=== PATIENT | male | born 1970 | race Caucasian/White ===

== ENCOUNTER 2023-12-31 16:20 | Emergency (ER) | payer OTHER, SELFPAY ==
[2023-12-31 16:23] VITALS: BP 170/84; PULSE 66; RESP 16; TEMP 36.6; O2SAT 97
--- NOTE | 2023-12-31 16:25 | CT_ITS ---
We are attempting to reach an attending provider to discuss findings. An addendum with communication details will be sent when the communication is complete. INDICATION: Neuro deficit, acute, stroke suspected EXAMINATION: CT BRAIN - CT Head Stroke Protocol W/O Contrast Injection TECHNIQUE: Multiple axial images were obtained of the head without intravenous contrast. A radiation dose optimization technique was used for this scan. IV Contrast dosage and agent: None. RADIATION DOSAGE (If Supplied By Facility): CTDIvol = ( ) mGy, DLP = ( 812.98 ) mGycm COMPARISON: FINDINGS: BRAIN PARENCHYMA: No intra- or extra-axial hemorrhage. No evidence of acute infarct. No intracranial mass or mass effect. There is preservation of the arnold/white matter interface. Posterior fossa structures are unremarkable. CSF SPACES: Mild cortical atrophy for stated age No hydrocephalus. Basal cisterns are patent. CALVARIUM, SKULL BASE, PARANASAL SINUSES AND MASTOID AIR CELLS: Moderate mucosal thickening in the right ethmoid air cells.. No discrete lytic or blastic abnormalities. ORBITS: Both globes, extraocular muscles, optic nerves and retrobulbar fat appear unremarkable. Incidental finding of asymmetric increased attenuation of the right internal carotid and M1 segment of the middle cerebral of uncertain significance although cannot definitively exclude arterial thrombosis. MRI recommended for more definitive evaluation if clinically indicated. CT/STROKE Brain/Head without Cont IMPRESSION: No definitive evidence for acute infarct or bleed however findings suspicious for possible thrombosis of the right middle cerebral artery. MRI /MRArecommended for further evaluation if clinically warranted. Electronically Signed: Albaro Melissa MD at 16:45 EST ,
--- NOTE | 2023-12-31 16:25 | EKG12_ITS ---
Test Reason : POSS STROKE Blood Pressure : / mmHG Vent. Rate : 062 BPM Atrial Rate : 062 BPM P-R Int : 164 ms QRS Dur : 078 ms QT Int : 438 ms P-R-T Axes : -08 056 029 degrees QTc Int : 444 ms Normal sinus rhythm Normal ECG When compared with ECG of 12-SEP-2012 16:14, Vent. rate has decreased BY 31 BPM Confirmed by CARINA LLANES MD ([id number]), scientific publications editor GREGORIO OCONNOR ([id number]) on 01/09/2024 9:18:20 AM Referred By: JAKOB Confirmed By:CARINA LLANES MD
--- NOTE | 2023-12-31 16:26 | ED.VIS.STROK ---
HPI History of Present Illness Chief Complaint: Stroke Alert Informant: patient and EMS Onset/Context/Timing Onset: Today and Hours Context: Sudden Onset Timing: Continuous Current Severity: Severe Maximum Severity: Severe Associated Symptoms Associated Symptoms: Positive for Headache; Negative for Nausea, Vomiting or Chest Pain Narrative Narrative: 53-year-old male history of hypertension and anxiety. Today around 8 AM he developed a left-sided weakness, left-sided facial droop and a headache. Also some difficulty with his speech. He was at work he laid down to see if he would feel better and is progressively not improved and is again a little worse. No prior history of stroke or TIA. He is on no blood thinners. Denies any trauma. Patient brought in by [facility]. Stroke alert and team assembled. Prior similar symptoms: No Recent Illness/Hospitalization: No [facility] Medical History (Updated 12/31/23 @ 17:[address] Jerardo Luther MD) AA (alcohol abuse) Anxiety HTN (hypertension) Home Medications alprazolam 0.5 mg tablet 0.5 mg PO BID 12/31/23 [History Last Taken Unknown] Social History Smoking Status: Current every day smoker tobacco type: cigarettes ROS ROS ED ROS Narrative Headache. Left-sided weakness. Review of Systems ROS Unobtainable: Denies due to encephalopathy Constitutional Constitutional ED: Denies chills or fever(s) Eyes Eyes: Denies blurry vision ENT ENT ED: Denies ear pain Cardiovascular Cardiovascular: Denies chest pain Respiratory/Chest Respiratory/Chest: Denies cough or dyspnea Gastrointestinal Gastrointestinal: Denies abdominal pain, constipation, diarrhea, melena, nausea or vomiting Genitourinary Genitourinary ED: Denies dysuria or hematuria Musculoskeletal Musculoskeletal: Denies arthralgias Integumentary Denies abscess Neurologic Neurologic: Reports headache(s) and weakness; Denies paresthesias Psychiatric Psychiatric: Denies depression Endocrine Endocrinology: Denies polydipsia Hematologic/Lymphatic Hematologic/Lymphatic: Denies easy bleeding or easy bruising Allergic/Immunologic Allergic/Immunologic ED: Denies mouth swelling or urticaria EXAM Physical Exam Narrative Exam Narrative: 53-year-old male brought in by squad. Vital signs pending. H EENT exam pupils round react to light his motions are intact. Left facial droop. Neck nontender. Lungs clear. Heart regular rhythm no murmur. Chest wall and ribs nontender. Abdomen soft nontender. Neurologically is awake. He is left facial droop. Slurred speech is mildly slurred. He has significant weakness with his left hand, arm and leg. He cannot lift them off the bed. 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 He is awake alert. However and is answering questions. Const Vital Signs: 12/31/23 16:23 12/31/23 16:30 12/31/23 16:30 Temperature 98 F 98 F Temperature Source Temporal Temporal Pulse Rate 66 66 Respiratory Rate 16 19 H Blood Pressure 170/84 H 195/93 H Blood Pressure Mean 112 127 Pulse Ox 97 100 Oxygen Delivery Method Room Air Room Air 12/31/23 16:42 12/31/23 16:45 12/31/23 17:00 Temperature Temperature Source Pulse Rate 65 67 Respiratory Rate 15 20 H Blood Pressure 170/100 H 165/102 H Blood Pressure Mean 123 123 Pulse Ox 99 100 Oxygen Delivery Method Room Air Room Air Room Air 12/31/23 17:15 12/31/23 17:24 Temperature 98 F Temperature Source Pulse Rate 62 69 Respiratory Rate 18 18 Blood Pressure 168/83 H 168/83 H Blood Pressure Mean 111 111 Pulse Ox 100 99 Oxygen Delivery Method Room Air Positive well nourished and well developed; Negative for obese, cachectic, contractures or unkempt General Appearance ED: well developed; Negative for unkempt, cachectic, contractures or NAD Nutritional Appearance: Negative for cachectic or obese HEENT Reports moist mucous membranes; Denies dry mucous membranes atraumatic; Negative for trauma Nose: Negative for other Mouth ED: No dry mucous membranes Mouth: No dry mucous membranes Eyes PERRL and EOMs intact bilaterally General Eye ED: Negative for pale conjunctiva or scleral icterus Neck no lymphadenopathy, supple and no JVD General: Negative for tenderness Thyroid: Negative for other Chest Wall inspection of chest normal and palpation of chest normal Resp normal respiratory effort and clear to auscultation bilaterally Effort and Inspection: Negative for retractions Auscultation: Negative for rales, rhonchi or wheezes Cardio no murmurs Rate: regular rate Rhythm: regular rhythm GI normal to inspection, nondistended, normoactive bowel sounds, soft to palpation, non-tender, non-distended and no masses Inspection: Negative for abdominal distention Auscultation: normoactive bowel sounds Palpation: Negative for tender Back/Spine no CVA tenderness General Back: Negative for CVA tenderness Cervical Spine: Negative for cervical spine tenderness Thoracic Spine / Upper Back: Negative for thoracic spinal tenderness Lumbar Spine / Lower Back: Negative for lumbar spinal tenderness Extremity Negative for normal to inspection Extremity Narrative: Left-sided weakness. General Extremety ED: Negative for deformity, edema or tenderness General Extremity: Negative for deformity or edema Neuro oriented x3, No CN's II-XII intact bilaterally and no sensory deficits noted Neuro Narrative: Left facial droop. Slurred speech. But understandable. Significant weakness left arm and leg. Sensorium / Orientation: alert, oriented to person, oriented to place and oriented to time; Negative for orientation impaired, confused, lethargic or stuporous Speech: Negative for speech normal Motor Exam: strength abnormal; Negative for strength 5/5 throughout Psych mental status grossly normal Appearance: Negative for unkempt Attitude: No agitated Mood & Affect: Negative for depressed, anxious or tearful Attention / Concentration: Negative for other Skin no wounds General Skin Exam: Negative for jaundice Lesions: no lesions Rashes: no rashes Trauma: Negative for abrasion or laceration NIHSS NIHSS Initial: 1a Level of Consciousness: 0 1b LOC Questions (Score 2 if aphasic/stupor): 0 1c LOC Commands (Only score 1st attempt): 0 2 Best Gaze (If aphasic, use reflexive mvmts.): 0 3 Visual: 0 4 Facial Palsy: 2 5 Motor Arm Right (UN = amputation/fusion): 0 5 Motor Arm Left: 3 6 Motor Leg Right: 0 6 Motor Leg Left: 3 7 Limb ataxia (Only + if out of proportion): 2 8 Sensory (Aphasia/stupor=0 or 1, coma=2): 0 9 Best Language: 1 10 Dysarthria (mute, coma=2, intubated=UN): 0 11 Extinction and Inattention (only scored if +): 0 Total Score: 11 MDM MDM MDM Narrative Medical decision making narrative: 33-year-old male presents with strokelike symptoms of these began around 8 AM and is currently 430. It is about 8 and half hours since onset. He is on no blood thinners. To be put through the stroke protocol. I state is on page. Patient's CAT scan and CT a head and neck did show right-sided internal carotid and MCA occlusion with stroke findings on the brain. No bleed. I have already discussed this with radiology and [facility] neurology. Will be taken to [facility] as soon as possible by ground transport. Due to the weather they are currently not flying. Will be taken by mobile intensive care unit. He is not a tenecteplase candidate due to the timeline. And also his CT findings. He may be a candidate for thrombectomy once he gets [facility] and do further evaluation. I discussed this all already with the patient and his at bedside. History & Record Review Discussion w/independent historian: EMS personnel and Patient Lab Data Attestation: I reviewed the patient's lab results. Lab results narrative: CBC shows a white count 8.9. H&H is 17 and 52. Platelets 211. PT, INR and PTT normal. Electrolytes show sodium 135. Gap 2. Normal BUN and creatinine. Glucose 107. Troponin 3. CTA of the head and neck showed a right internal carotid clot extending into the right middle cerebral artery. The radiologist called with the results. I reviewed these with the [facility] neurologist. Labs: Laboratory Results - last 24 hr 12/31/23 16:15 WBC 8.9 RBC 5.35 Hgb 17.7 H Hct 52.4 MCV 97.9 H MCH 33.1 H MCHC 33.8 RDW Std Deviation 47.8 H RDW Coeff of Cuate 13.2 Plt Count 211 MPV 10.4 Immature Gran % (Auto) 0.300 Neut % (Auto) 72.4 H Lymph % (Auto) 16.8 L [place] % (Auto) 8.7 Eos % (Auto) 1.0 Baso % (Auto) 0.8 Absolute Neuts (auto) 6.5 Absolute Lymphs (auto) 1.50 Nucleated RBC % 0 PT 11.8 INR 0.9 APTT 30.4 Sodium 135 L Potassium 3.9 Chloride 108 H Carbon Dioxide 25.0 Anion Gap 2 L BUN 13 Creatinine 0.96 Estim Creat Clear Calc 86.94 Est GFR (MDRD) Af Amer 105 Est GFR (MDRD) Non-Af 87 BUN/Creatinine Ratio 13.6 Glucose 107 H Calcium 9.5 Troponin I High Sens 3 Radiography Diagnostic Testing: Clinical Impression(s) from Imaging Studies Brain CT 12/31/23 16:25 IMPRESSION: No definitive evidence for acute infarct or bleed however findings suspicious for possible thrombosis of the right middle cerebral artery. MRI /MRArecommended for further evaluation if clinically warranted. Electronically Signed: Albaro Melissa MD at 16:45 EST , ADDENDUM: 12/31/23 1657 IMPRESSION: No definitive evidence for acute infarct or bleed however findings suspicious for possible thrombosis of the right middle cerebral artery. MRI /MRArecommended for further evaluation if clinically warranted. N.B. : The above Results were Read Back by Albaro Melissa MD to Albaro Luther MD, and understanding confirmed on 12/31/2023 16:50:37 (ET). Electronically Signed: Albaro Melissa MD at 16:45 EST , Head/Neck CTA 12/31/23 16:30 IMPRESSION: Severe atherosclerotic disease on the right with high-grade greater than 90% stenosis of the origin of the right internal carotid and occlusion just distal to the arch and extending to the brain including the right middle cerebral artery. There is also diffuse narrowing of the A1 segment of the right anterior cerebral artery N.B. : The above Results were Read Back by Albaro Melissa MD to Albaro Luther MD, and understanding confirmed on 12/31/2023 16:50:32 (ET). Electronically Signed: Albaro Melissa MD at 16:54 EST , ADDENDUM: 12/31/23 1701 IMPRESSION: Severe atherosclerotic disease on the right with high-grade greater than 90% stenosis of the origin of the right internal carotid and occlusion just distal to the arch and extending to the brain including the right middle cerebral artery. There is also diffuse narrowing of the A1 segment of the right anterior cerebral artery N.B. : The above Results were Read Back by Albaro Melissa MD to Albaro Luther MD, and understanding confirmed on 12/31/2023 16:50:32 (ET). Electronically Signed: Albaro Melissa MD at 16:54 EST Reading Location ID and State: [address] [place] [address] Tel , Service support , Rhythm Strip Rhythm Strip: Sinus Rhythm Rate: 62 Ectopy: None EKG Initial EKG: Attestation: I personally reviewed and interpreted this EKG as follows: Interpretation: Sinus Rhythm and No Acute Injury Pattern Comments: Normal sinus rhythm rate of 62 no acute signs of NC or ischemia. No dysrhythmia. Critical Care Time Critical Care Time: Yes Critical care time (excluding procedures): 30-74 minutes, Including time spent:, Discussing w/Patient &/or Family/Claim Inspector, Discussing w/Consultants, Arranging Admission or Transfer, Performing Direct Patient Care at Bedside and - (35 minutes) Discharge Plan Triage Chief Complaint: Stroke Alert ED Provider: Jerardo Luther Dx/Rx/DC Orders Clinical Impression: Acute stroke due to embolism of right middle cerebral artery, History of hypertension Prescriptions: No Action alprazolam 0.5 mg tablet 0.5 mg PO BID Patient Comments: take 1 tablet by mouth twice a day Primary Care Provider: Care Physician,No Primary Referrals: NOT,DEFINED [Non-Staff] - Disposition Disposition: Acute Care Hospital Discharge Location: [facility] Discharge Date/Time: 12/31/23 17:34
[2023-12-31 16:30] VITALS: BP 195/93; PULSE 66; RESP 19; TEMP 36.6; O2SAT 100; BMI 26.1
--- NOTE | 2023-12-31 16:30 | CT_ITS ---
STUDY: CTA HEAD AND NECK WITH CONTRAST REASON FOR EXAM: Male, 53 years old. Neuro deficit, acute, stroke suspected RADIATION DOSAGE (If Supplied By Facility): CTDIvol = ( 20.71 ) mGy, DLP = ( 861.70 ) mGycm TECHNIQUE: CT angiography was performed with a multi-detector CT scanner. Data acquisition was obtained from the skull base through the vertex following intravenous administration of IV 100mL Isovue-370. MIP images were reconstructed from the axial data set. Post-processing of the angiographic images was performed, with multiplanar reformation and 3D reconstruction. Individualized dose optimization techniques were used for this CT. COMPARISON: No relevant priors. FINDINGS: Occluded right petrous carotid. Occluded right cavernous carotid artery with a normal supraclinoid bifurcation. Normal left cavernous carotid artery with a normal supraclinoid bifurcation. Narrowed right A1 segments of the anterior cerebral artery. Normal left A1 segments of the anterior cerebral artery. Anterior communicating artery not visualized consistent with normal variant.). Normal bilateral A2 segments of the anterior cerebral arteries. Occluded right M1 and M2 segments of the middle cerebral arteries, with a normal M1 bifurcation. Normal left M1 and M2 segments of the middle cerebral arteries, with a normal M1 bifurcation. Posterior communicating arteries aren''t visualized consistent with normal variant Normal bilateral vertebral arteries. Normal basilar artery with a normal basilar bifurcation. The visualized bilateral superior cerebellar (SCA) arteries are normal. Normal bilateral P1, P2 and visualized P3 segments of the posterior cerebral arteries. There is no demonstrated aneurysm of the [place] of [place]. AORTIC ARCH: Normal visualized aortic arch. Normal origins of the brachiocephalic, left common carotid, and left subclavian arteries. RIGHT CAROTID ARTERIES: Normal right common carotid artery (CCA). Normal right common carotid bulb. Soft and calcific plaque severely narrowing the origin of the right internal carotid (ICA) artery. Occluded visualized cervical portion of the right internal carotid artery. Normal origin of the right external carotid artery (ECA). LEFT CAROTID ARTERIES: Normal left common carotid artery (CCA). Calcific plaquing of the left common carotid bulb. Normal origin of the left internal carotid (ICA) artery without a hemodynamically significant stenosis. Normal visualized cervical portion of the left internal carotid artery. Normal origin of the left external carotid artery (ECA). VERTEBRAL ARTERIES: Normal bilateral vertebral arteries. CT/STROKE CTA Head AND Neck W/Con IMPRESSION: Severe atherosclerotic disease on the right with high-grade greater than 90% stenosis of the origin of the right internal carotid and occlusion just distal to the arch and extending to the brain including the right middle cerebral artery. There is also diffuse narrowing of the A1 segment of the right anterior cerebral artery N.B. : The above Results were Read Back by Albaro Melissa MD to Albaro Luther MD, and understanding confirmed on 12/31/2023 16:50:32 (ET). Electronically Signed: Albaro Melissa MD at 16:54 EST ,
[2023-12-31 16:45] VITALS: BP 170/100; PULSE 65; RESP 15; O2SAT 99
[2023-12-31 17:00] VITALS: BP 165/102; PULSE 67; RESP 20; O2SAT 100
[2023-12-31 17:15] VITALS: BP 168/83; PULSE 62; RESP 18; O2SAT 100
--- NOTE | 2023-12-31 17:22 | ED.RN ---
UNABLE TO DO NIHSS UNTIL PT BACK TO ROOM FROM CT
--- NOTE | 2023-12-31 17:23 | ED.RN ---
TRANSPORT AT BEDSIDE [id number]
[2023-12-31 17:24] VITALS: BP 168/83; PULSE 69; RESP 18; TEMP 36.6; O2SAT 99
--- NOTE | 2023-12-31 17:26 | ED.RN ---
NORMAL SALINE STARTED AT 150 ML/HR PER [facility] NEUROLOGIST
[2023-12-31 17:38] LABS: Absolute Neutrophil Count 6.5 X10^3/uL (2.0-7.7); Basophil# 0.07 X10^3/uL; Basophil% 0.8 % (0-1); Eosinophil# 0.09 X10^3/uL; Hematocrit 52.4 % (40-54); Hemoglobin 17.7 g/dL (13.0-16.5); Lymphocyte % 16.8 % (19-41); Mean Corp Hgb Conc 33.8 g/dL (32-36); Mean Corpuscular Hgb 33.1 pg (27.0-32.0); Mean Corpuscular Volume 97.9 fL (80-94); Mean Platelet Vol. 10.4 fl (6.2-12.0); Monocyte# 0.78 X10^3/uL; Monocyte% 8.7 % (0-10); NRBC Flagged by Analyzer 0 % (0-5); Neutrophil # 6.46 X10^3/uL (2.7-7.7); Neutrophil % 72.4 % (47-70); Platelet Count 211 K/mm3 (150-450); RBC Distribution Width CV 13.2 % (11.6-14.6); RBC Distribution Width SD 47.8 fl (35.1-43.9); Red Blood Count 5.35 M/mm3 (4.6-6.2); White Blood Count 8.9 K/mm3 (4.4-11.0)
[2023-12-31 17:52] LABS: International Normalized Ratio 0.9; Prothrombin Time (Protime)PT. 11.8 SECONDS (11.7-14.9)
[2023-12-31 17:53] LABS: Partial Thromboplast Time 30.4 Seconds (24.1-36.2)
[2023-12-31 17:59] LABS: Anion Gap 2 (5-15); BUN 13 mg/dL (7-18); BUN/Creat Ratio 13.6 RATIO (10-20); Calcium,Total 9.5 mg/dL (8.5-10.1); Chloride 108 mmol/L (98-107); Creatinine, Serum 0.96 mg/dL (0.70-1.30); EST Glomerular Filtration Rate 87 mL/min (>60); Est Glom Filt Rate - Afr Amer 105 mL/min (>60); Estimated Creatinine Clearance 86.94 ml/min; Glucose 107 mg/dL (74-106); Potassium 3.9 mmol/L (3.5-5.1); Sodium Level 135 mmol/L (136-145); Troponin-I HS 3 pg/mL (3.0-78.0)
== END 2023-12-31 17:34 | disposition short-term general hospital (02) ==
PROVIDERS: Emergency Provider Emergency Medicine; Visit Provider Emergency Medicine
DX: I63.311 Cerebral infarction due to thrombosis of right middle cerebral artery (principal); F17.210 Nicotine dependence, cigarettes, uncomplicated
CPT/HCPCS: 70450; 70496; 70498; 80048; 84484; 85025; 85610; 85730; 93005; 99285; J7030; Q9967

== ENCOUNTER → 2024-03-03 | Outpatient (CLI) | payer OTHER, SELFPAY ==
--- NOTE | 2024-03-03 12:58 | CDU_ITS ---
Reason For Study: Catorid stenosis Rt. Velocities/BP Lt. Velocities/BP Prox CCA 59.8/10.7 cm/sec. Prox CCA 91.2/28.6 cm/sec. Mid CCA 61.7/13.5 cm/sec. Mid CCA 96.1/36 cm/sec. Dist CCA 57.9/13.5 cm/sec. Dist CCA 87.6/29.8 cm/sec. Prox ICA 138.1 cm/sec. Prox ICA 94.9/35.5 cm/sec. Mid ICA 32.2 cm/sec. Mid ICA 86.1/34.4 cm/sec. Distal ICA, No flow. Dist ICA 98.6/36 cm/sec. Rt. ICA/CCA = 2.24. Lt. ICA/CCA = 1.03. Prox ECA 90.5/14.6 cm/sec. Prox ECA 70.2/15.4 cm/sec. Rt. Vert. 52/14.5 cm/sec. Lt. Vert. 47.5/12.6 cm/sec. Right Extracranial There is homogeneous, smooth atherosclerotic plaque noted in the right common carotid artery. There is heterogeneous, irregular atherosclerotic plaque noted in the right internal carotid artery. Abnormal waveform morphology noted in the Right ICA. There is heterogeneous, irregular atherosclerotic plaque noted in the right external carotid artery. Antegrade flow is noted in the right vertebral artery. Left Extracranial There is homogeneous, smooth atherosclerotic plaque noted in the left common carotid artery. There is heterogeneous, irregular atherosclerotic plaque noted in the left internal carotid artery. There is homogeneous, smooth atherosclerotic plaque noted in the left external carotid artery. Antegrade flow is noted in the left vertebral artery. Procedure Carotid Duplex [id number]. This is a Carotid Duplex examination using B-mode, color flow and specral Doppler. Preliminary report given to Tari. Exam performed in department. VL/Carotid Duplex Ultrasound Interpretation Summary Total occlusion of the right extracranial internal carotid. Mild (<50%) stenosis left extracranial internal carotid. Patent and antegrade vertebrals bilaterally. Ordering Physician: Mark Landry Referring Physician: Yfn Christian Performed By: Anita Witt RVT
== END | disposition home or self-care (01) ==
LOC: CVS 12:56
PROVIDERS: PCP Preventive Medicine Occupational Medicine; Referring Provider Psychiatry & Neurology Neurology; Visit Provider Psychiatry & Neurology Neurology
DX: I63.231 Cerebral infarction due to unspecified occlusion or stenosis of right carotid arteries (principal)
CPT/HCPCS: 93880

== ENCOUNTER 2024-04-27 12:00 | Observation (INO) | payer OTHER, SELFPAY ==
[2024-04-27] VITALS (21 sets, daily range): BP systolic 133–176; BP diastolic 76–101; PULSE 62–81; RESP 10–19; TEMP 36.2–36.9; O2SAT 96–100; BMI 25.9; BMI 27.3
--- NOTE | 2024-04-27 12:05 | ED.RN ---
1204-STROKE ALERT CALLED
--- NOTE | 2024-04-27 12:09 | CT_ITS ---
STUDY: CT BRAIN WITHOUT CONTRAST REASON FOR EXAM: Male, 54 years old. Neuro deficit, acute, stroke suspected RADIATION DOSAGE (If Supplied By Facility): CTDIvol = ( ) mGy, DLP = ( ) mGycm TECHNIQUE: Transaxial CT imaging of the brain was performed without administration of intravenous contrast material. Individualized dose optimization techniques were used for this CT. COMPARISON: 12/31/2023 FINDINGS: Normal soft tissue structures. Normal calvarium. Evidence of old infarct in the right basal ganglia with encephalomalacia and ipsilateral dilatation of the frontal horn of the right lateral ventricle. Normal white matter tracts of the cerebral hemispheres. Normal left basal ganglia and thalami. Normal brainstem. Normal cerebellum. There is no intracranial hemorrhage. There are no findings of an acute ischemic infarction. Normal visualized paranasal sinuses. ASPECTS Score for Acute Strokes: 10 CT/STROKE Brain/Head without Cont IMPRESSION: No acute hemorrhage midline shift or suspicious mass effect. Remote right basal ganglia infarct with encephalomalacia N.B. : The above Results were Read Back by Ike Sands MD to Dr. Neftaly MD, and understanding confirmed on 04/27/2024 12:24:18 (ET). Electronically Signed: Ike Sands MD at 12:27 EDT ,
--- NOTE | 2024-04-27 12:11 | EKG12_ITS ---
Test Reason : STROKE Blood Pressure : / mmHG Vent. Rate : 073 BPM Atrial Rate : 073 BPM P-R Int : 164 ms QRS Dur : 086 ms QT Int : 424 ms P-R-T Axes : 000 011 028 degrees QTc Int : 467 ms Normal sinus rhythm Normal ECG Confirmed by Artie Sawyer ([id number]), slot editor ARACELIS GODINEZ ([id number]) on 04/28/2024 8:34:53 AM Referred By: Confirmed By:Artie Sawyer
--- NOTE | 2024-04-27 12:11 | CT_ITS ---
STUDY: CTA HEAD AND NECK WITH CONTRAST REASON FOR EXAM: Male, 54 years old. Acute mental status change RADIATION DOSAGE (If Supplied By Facility): CTDIvol = ( 24.34 ) mGy, DLP = ( 759.58 ) mGycm TECHNIQUE: CT angiography was performed with a multi-detector CT scanner. Data acquisition was obtained from the skull base through the vertex following intravenous administration of IV 100mL Isovue-370. MIP images were reconstructed from the axial data set. Post-processing of the angiographic images was performed, with multiplanar reformation and 3D reconstruction. Individualized dose optimization techniques were used for this CT. COMPARISON: 12/31/2023 FINDINGS: Normal bilateral petrous carotid arteries. Normal right cavernous carotid artery with a normal supraclinoid bifurcation. Normal left cavernous carotid artery with a normal supraclinoid bifurcation. Normal right A1 segments of the anterior cerebral artery. Normal left A1 segments of the anterior cerebral artery. Normal intact anterior communicating artery (ACOM). Normal bilateral A2 segments of the anterior cerebral arteries. The right M1 and its subsequent branches are diminished caliber compared to the left side due likely due to the occluded right ICA. Normal left M1 and M2 segments of the middle cerebral arteries, with a normal M1 bifurcation. Normal right posterior communicating artery (PCOM). Normal left posterior communicating artery (PCOM). Normal bilateral vertebral arteries. Normal basilar artery with a normal basilar bifurcation. The visualized bilateral superior cerebellar (SCA) arteries are normal. Normal bilateral P1, P2 and visualized P3 segments of the posterior cerebral arteries. There is no demonstrated aneurysm of the [place] of [place]. There is no demonstrated abnormality of the visualized brain. AORTIC ARCH: Normal visualized aortic arch. Normal origins of the brachiocephalic, left common carotid, and left subclavian arteries. RIGHT CAROTID ARTERIES: Normal right common carotid artery (CCA). There is moderate atherosclerotic plaque formation with moderate narrowing of the right carotid bulb. There is complete occlusion of the origin of the right internal carotid artery without demonstrated arterial flow. This is unchanged compared to the previous study Normal origin of the right external carotid artery (ECA). LEFT CAROTID ARTERIES: Normal left common carotid artery (CCA). Normal left common carotid bulb. Normal origin of the left internal carotid (ICA) artery without a hemodynamically significant stenosis. Normal visualized cervical portion of the left internal carotid artery. Normal origin of the left external carotid artery (ECA). VERTEBRAL ARTERIES: Normal bilateral vertebral arteries. No suspicious enhancing lesion, airway narrowing or deviation. No suspicious adenopathy CT/STROKE CTA Head AND Neck W/Con IMPRESSION: Right ICA is occluded at its origin, unchanged from the previous study. There is no reconstitution. The caliber of the right M1 and its branches is diminished compared to the left side. There is no evidence of acute occlusive disease. Caliber differences likely due to the occluded right ICA and the right MCA being filled from the left side. No CTA evidence of aneurysm or vascular malformation Normal vertebral arteries N.B. : The above Results were Read Back by Ike Sands MD to Dr. Neftaly MD, and understanding confirmed on 04/27/2024 12:37:56 (ET). Electronically Signed: Ike Sands MD at 12:39 EDT ,
--- NOTE | 2024-04-27 12:12 | EDS_ITS ---
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 He states he did not undergo any procedure for thrombectomy. Initially had a stroke his symptoms were left-sided deficits as well as headache. He states recently he continues to have minimal use of his left arm and paresthesia of his left arm however his facial droop and facial paresthesias had resolved. Patient states that about 30 minutes prior to arrival today he started feel numb on the left side of his face. He went to the bathroom and just felt really disoriented. He could not get his shorts back on and kept putting them on either backwards or inside out. I think came to the emergency room for further evaluation. I note since it started he is also having some shortness of breath. Denies chest pain. Denies any nausea or vomiting. Takes a daily 81 mg aspirin. No other complaints or concerns reported at this time. [facility] Medical History AA (alcohol abuse) Anxiety HTN (hypertension) Home Medications ?Medication ?Instructions ?Recorded ?Last Taken ?Type alprazolam 0.5 mg tablet 0.5 mg PO BID ANXIETY 12/31/23 Unknown History aspirin 81 mg capsule 81 mg PO DAILY 04/27/24 Unknown History atorvastatin 80 mg tablet 80 mg PO DAILY CHOLESTEROL 04/27/24 Unknown History baclofen 10 mg tablet 15 mg PO TID MUSCLE SPASMS 04/27/24 Unknown History citrulline 400 mg capsule mg PO 04/27/24 Unknown History losartan 25 mg tablet 25 mg PO DAILY BLOOD PRESSURE 04/27/24 Unknown History melatonin 3 mg tablet 3 mg PO 1900 SLEEP 04/27/24 Unknown History naltrexone 50 mg tablet 50 mg PO DAILY ADDICTION PREVENTION 04/27/24 Unknown History pregabalin 50 mg capsule 50 mg PO BID PAIN 04/27/24 Unknown History Allergy/AdvReac Type Severity Reaction Status Date / Time No Known Allergies Allergy Verified 04/27/24 14:17 Social History Smoking Status: Current every day smoker tobacco type: cigarettes ROS ROS ED Constitutional Constitutional ED: Denies chills or fever(s) Eyes Eyes: Denies blurry vision or change in vision ENT ENT ED: Denies sore throat Cardiovascular Cardiovascular: Denies chest pain Respiratory/Chest Respiratory/Chest: Denies cough Gastrointestinal Gastrointestinal: Denies abdominal pain Neurologic Neurologic: Reports paresthesias, weakness and other Details: Episode of confusion Hematologic/Lymphatic Hematologic/Lymphatic: Denies easy bleeding or easy bruising EXAM Physical Exam Const Vital Signs: 04/27/24 12:02 04/27/24 12:05 04/27/24 12:11 Temperature 97.6 F L Temperature Source Oral Pulse Rate 72 Respiratory Rate 18 Blood Pressure 161/101 H Blood Pressure Mean 121 Pulse Ox 98 98 Oxygen Delivery Method Room Air 04/27/24 12:29 04/27/24 12:55 04/27/24 13:00 Temperature Temperature Source Pulse Rate 69 66 66 Respiratory Rate 18 12 13 Blood Pressure 159/86 H 145/76 H Blood Pressure Mean 110 96 Pulse Ox 96 Oxygen Delivery Method Room Air 04/27/24 13:15 04/27/24 13:17 04/27/24 13:30 Temperature Temperature Source Pulse Rate 77 71 67 Respiratory Rate 10 L 19 H 14 Blood Pressure 155/83 H 147/83 H Blood Pressure Mean 104 103 Pulse Ox 99 96 Oxygen Delivery Method Room Air 04/27/24 13:45 04/27/24 14:00 04/27/24 14:00 Temperature Temperature Source Pulse Rate 66 71 68 Respiratory Rate 15 12 16 Blood Pressure 151/81 H 164/89 H 151/85 H Blood Pressure Mean 102 114 101 Pulse Ox 96 100 100 Oxygen Delivery Method Room Air 04/27/24 14:15 04/27/24 14:30 04/27/24 14:45 Temperature Temperature Source Pulse Rate 79 Respiratory Rate 16 Blood Pressure 164/89 H 153/80 H 160/86 H Blood Pressure Mean 113 100 108 Pulse Ox 100 Oxygen Delivery Method 04/27/24 15:00 04/27/24 15:25 Temperature 97.8 F Temperature Source Pulse Rate 77 81 Respiratory Rate 18 18 Blood Pressure 176/87 H 176/87 H Blood Pressure Mean 112 116 Pulse Ox 100 98 Oxygen Delivery Method Room Air Positive well nourished and well developed General Appearance ED: well developed HEENT Reports moist mucous membranes Eyes PERRL and EOMs intact bilaterally Neck supple Chest Wall inspection of chest normal Resp normal respiratory effort and clear to auscultation bilaterally GI normal to inspection, nondistended, normoactive bowel sounds and soft to palpation Back/Spine no CVA tenderness Extremity Extremity Narrative: Subtle edema of the left upper extremity, chronic appearing Neuro oriented x3 Neuro Narrative: See NIH below. Subtle left facial droop, no paresthesias of the right face. Chronic weakness to even gravity of the left upper extremity with paresthesias of the left upper extremity. [place] Coma Scale: document GCS findings Spontaneous Obeys Commands Oriented 15 Sensorium / Orientation: alert, oriented to person, oriented to place and orie nted to time Psych mental status grossly normal Skin no wounds NIHSS NIHSS Initial: 1a Level of Consciousness: 0 1b LOC Questions (Score 2 if aphasic/stupor): 0 1c LOC Commands (Only score 1st attempt): 0 2 Best Gaze (If aphasic, use reflexive mvmts.): 0 3 Visual: 0 4 Facial Palsy: 1 5 Motor Arm Right (UN = amputation/fusion): 0 5 Motor Arm Left: 3 6 Motor Leg Right: 0 6 Motor Leg Left: 0 7 Limb ataxia (Only + if out of proportion): 0 8 Sensory (Aphasia/stupor=0 or 1, coma=2): 1 9 Best Language: 0 10 Dysarthria (mute, coma=2, intubated=UN): 0 11 Extinction and Inattention (only scored if +): 0 Total Score: 5 MDM MDM MDM Narrative Medical decision making narrative: Patient is evaluated for acute onset of strokelike symptoms including left facial droop and left facial numbness. He has a prior history of a right MCA stroke with significant left-sided deficits to begin with. In addition he had an episode of confusion. Patient's vital signs are significant for hypertension in the emergency room. His facial droop and facial numbness resolved in the emergency room and he goes back to his baseline neurologic status. He is not confused at this time. His workup is largely negative. Stroke alert was called but after discussion with stroke neurologist, Dr. Calderon, we agree that he is not a TNKase candidate. In addition suspect this is more of an encephalopathy versus acute stressor that caused a recurrence of his old strokelike symptoms versus an acute stroke. I do question with his episode of confusion and known right ICA occlusion I question if he may have had some transient drop in blood pressure that decreased his brain perfusion and cause the symptoms. I do think patient benefit from further monitoring in the hospital and possible repeat MRI. Case is discussed with hospitalist, Dr. Deng who is also agreeable with this plan of care. Lab Data Attestation: I reviewed the patient's lab results. Labs: Laboratory Results - last 24 hr 04/27/24 04/27/24 04/27/24 12:02 12:05 13:08 WBC 7.7 RBC 4.86 Hgb 15.7 Hct 47.1 MCV 96.9 H MCH 32.3 H MCHC 33.3 RDW Std Deviation 43.9 RDW Coeff of [place] 12.3 Plt Count 228 MPV 10.5 Immature Gran % (Auto) 0.100 Neut % (Auto) 46.9 L Lymph % (Auto) 40.2 [place] % (Auto) 9.7 Eos % (Auto) 2.3 Baso % (Auto) 0.8 Absolute Neuts (auto) 3.6 Absolute Lymphs (auto) 3.11 Nucleated RBC % 0 PT 12.3 INR 0.9 APTT 31.4 Sodium 143 Potassium 3.5 Chloride 108 H Carbon Dioxide 28.0 Anion Gap 7 BUN 13 Creatinine 0.95 Estim Creat Clear Calc 86.82 Est GFR (MDRD) Af Amer 105 Est GFR (MDRD) Non-Af 87 BUN/Creatinine Ratio 13.7 Glucose 91 Calcium 9.4 Troponin I High Sens 4 Urine Color Urine Clarity Urine pH Ur Specific [place] Urine Protein Urine Glucose (UA) Urine Ketones Urine Occult Blood Urine Nitrite Urine Bilirubin Urine Urobilinogen Ur Leukocyte Esterase Urine RBC Urine WBC Ur Squamous Epith Cells Urine Bacteria Urine Mucus Urine Opiates Screen Urine Methadone Screen Ur Barbiturates Screen Ur Phencyclidine Scrn Ur Amphetamines Screen MDMA (Ecstasy) Screen U Benzodiazepines Scrn Urine Cocaine Screen U Cannabinoids Screen Ur Drug Screen Comment Ethyl Alcohol < 3.0 POC Glucose 73 L 04/27/24 13:18 WBC RBC Hgb Hct MCV MCH MCHC RDW Std Deviation RDW Coeff of [place] Plt Count MPV Immature Gran % (Auto) Neut % (Auto) Lymph % (Auto) [place] % (Auto) Eos % (Auto) Baso % (Auto) Absolute Neuts (auto) Absolute Lymphs (auto) Nucleated RBC % PT INR APTT Sodium Potassium Chloride Carbon Dioxide Anion Gap BUN Creatinine Estim Creat Clear Calc Est GFR (MDRD) Af Amer Est GFR (MDRD) Non-Af BUN/Creatinine Ratio Glucose Calcium Troponin I High Sens Urine Color Straw Urine Clarity Clear Urine pH 7.0 Ur Specific [place] 1.005 Urine Protein Negative Urine Glucose (UA) Normal Urine Ketones Negative Urine Occult Blood Negative Urine Nitrite Negative Urine Bilirubin Negative Urine Urobilinogen Normal Ur Leukocyte Esterase Negative Urine RBC 0 SEEN Urine WBC 0 SEEN Ur Squamous Epith Cells 0-5 SEEN Urine Bacteria 0 SEEN Urine Mucus 0 SEEN Urine Opiates Screen NEGATIVE Urine Methadone Screen NEGATIVE Ur Barbiturates Screen NEGATIVE Ur Phencyclidine Scrn NEGATIVE Ur Amphetamines Screen NEGATIVE MDMA (Ecstasy) Screen NEGATIVE U Benzodiazepines Scrn POSITIVE H Urine Cocaine Screen NEGATIVE U Cannabinoids Screen NEGATIVE Ur Drug Screen Comment Ethyl Alcohol POC Glucose Radiography Chest X-Ray - ED: 1 View, Read by ED Physician, Read by Radiologist and No Acute Disease Diagnostic Testing: Clinical Impression(s) from Imaging Studies Brain CT 04/27/24 12:09 IMPRESSION: No acute hemorrhage midline shift or suspicious mass effect. Remote right basal ganglia infarct with encephalomalacia N.B. : The above Results were Read Back by Ike Sands MD to Dr. Neftaly MD, and understanding confirmed on 04/27/2024 12:24:18 (ET). Electronically Signed: Ike Sands MD at 12:27 EDT , ADDENDUM: 04/27/24 1234 IMPRESSION: No acute hemorrhage midline shift or suspicious mass effect. Remote right basal ganglia infarct with encephalomalacia N.B. : The above Results were Read Back by Ike Sands MD to Dr. Neftaly MD, and understanding confirmed on 04/27/2024 12:24:18 (ET). Electronically Signed: Ike Sands MD at 12:27 EDT , Head/Neck CTA 04/27/24 12:11 IMPRESSION: Right ICA is occluded at its origin, unchanged from the previous study. There is no reconstitution. The caliber of the right M1 and its branches is diminished compared to the left side. There is no evidence of acute occlusive disease. Caliber differences likely due to the occluded right ICA and the right MCA being filled from the left side. No CTA evidence of aneurysm or vascular malformation Normal vertebral arteries N.B. : The above Results were Read Back by Ike Sands MD to Dr. Nefatly MD, and understanding confirmed on 04/27/2024 12:37:56 (ET). Electronically Signed: Ike Sands MD at 12:39 EDT , Chest X-Ray 04/27/24 12:48 IMPRESSION: No interval change. No active or acute cardiopulmonary disease. Electronically Signed: Alexx Sarkar MD at 13:02 EDT , Discharge Plan Dx/Rx/DC Orders Clinical Impression: CVA (cerebral vascular accident), Left facial numbness, Altered awareness, t ransient Disposition Disposition: Acute Care Hospital [facility] Discharge Date/Time: 04/27/24 16:31
[2024-04-27 12:21] LABS: Absolute Lymphocyte Count 3.11 X10^3/uL (0.83-4.51); Absolute Neutrophil Count 3.6 X10^3/uL (2.0-7.7); Basophil# 0.06 X10^3/uL; Basophil% 0.8 % (0-1); Eosinophil# 0.18 X10^3/uL; Eosinophils% 2.3 % (0-5); Hematocrit 47.1 % (40-54); Hemoglobin 15.7 g/dL (13.0-16.5); Lymphocyte # 3.11 X10^3/ul (0.83-4.51); Lymphocyte % 40.2 % (19-41); Mean Corp Hgb Conc 33.3 g/dL (32-36); Mean Corpuscular Hgb 32.3 pg (27.0-32.0); Mean Corpuscular Volume 96.9 fL (80-94); Mean Platelet Vol. 10.5 fl (6.2-12.0); Monocyte# 0.75 X10^3/uL; Monocyte% 9.7 % (0-10); NRBC Flagged by Analyzer 0 % (0-5); Neutrophil # 3.63 X10^3/uL (2.7-7.7); Neutrophil % 46.9 % (47-70); Platelet Count 228 K/mm3 (150-450); RBC Distribution Width CV 12.3 % (11.6-14.6); RBC Distribution Width SD 43.9 fl (35.1-43.9); Red Blood Count 4.86 M/mm3 (4.6-6.2); White Blood Count 7.7 K/mm3 (4.4-11.0)
[2024-04-27 12:29] LABS: International Normalized Ratio 0.9; Partial Thromboplast Time 31.4 Seconds (24.1-36.2); Prothrombin Time (Protime)PT. 12.3 SECONDS (11.7-14.9)
[2024-04-27] MEDS: 0.9% Normal Saline (500mL Bag) 500 ML 999 ML IV (12:30)
[2024-04-27 12:45] LABS: Anion Gap 7 (5-15); BUN 13 mg/dL (7-18); BUN/Creat Ratio 13.7 RATIO (10-20); Calcium,Total 9.4 mg/dL (8.5-10.1); Chloride 108 mmol/L (98-107); Creatinine, Serum 0.95 mg/dL (0.70-1.30); EST Glomerular Filtration Rate 87 mL/min (>60); Est Glom Filt Rate - Afr Amer 105 mL/min (>60); Estimated Creatinine Clearance 86.82 ml/min; Glucose 91 mg/dL (74-106); Potassium 3.5 mmol/L (3.5-5.1); Sodium Level 143 mmol/L (136-145); Troponin-I HS 4 pg/mL (3.0-78.0)
--- NOTE | 2024-04-27 12:48 | RAD_ITS ---
STUDY: X-RAY CHEST REASON FOR EXAM: Male, 54 years old. Suspected stroke. TECHNIQUE: Single frontal view of the chest. COMPARISON: September 12, 2012 FINDINGS: The lungs are clear and expanded. There is no demonstrated pleural abnormality. Normal size heart. Normal mediastinum and roberto. Normal visualized pulmonary arteries. Normal visualized aortic arch and descending thoracic aorta. No abnormality of the visualized soft tissue structures of the upper abdomen. RAD/Chest 1 View IMPRESSION: No interval change. No active or acute cardiopulmonary disease. Electronically Signed: Alexx Sarkar MD at 13:02 EDT ,
[2024-04-27 13:16] LABS: Bedside Glucose 73 mg/dL (74-106)
[2024-04-27 13:29] LABS: Alcohol, Blood (Medical)-Serum < 3.0 mg/dL
[2024-04-27 13:39] LABS: Amphetamine Urine VISTA NEGATIVE (<1000 ng/mL); Barbiturate Urine VISTA NEGATIVE (< 200 ng/mL); Benzodiazepine Urine VISTA POSITIVE (< 200 ng/mL); Cocaine Urine VISTA NEGATIVE (< 300 ng/mL); Ecstacy Urine VISTA NEGATIVE (< 500 ng/mL); Methadone Urine VISTA NEGATIVE (< 300 ng/mL); PCP Urine VISTA NEGATIVE (< 25 ng/mL); THC Urine VISTA NEGATIVE (< 50 ng/mL); Vista UDS pH Range 6
[2024-04-27] MEDS: Acetaminophen 325 MG Tablet 650 MG PO (14:13)
[2024-04-27 14:22] LABS: Bacteria 0 SEEN /hpf (None Seen); Mucous, Urine 0 SEEN /hpf (<or=2+); Red Blood Cells-Urine 0 SEEN /hpf (0-5); White Blood Cells 0 SEEN /hpf (0-5)
[2024-04-27 14:23] LABS: Color, Urine Straw (Yellow); Glucose, Dipstick Normal (Normal); Ketone-Dipstick Negative (Negative); Leukocyte Esterase-Dipstick Negative /ul (Negative); Nitrite-Dipstick Negative (Negative); Occult Blood-Urine Negative /ul (Negative); Protein-Dipstick Negative (Negative); Specific Gravity, Urine 1.005 (1.002-1.030); Urine Bilirubin Dipstick Negative (Negative); Urine Clarity Clear (Clear); Urine Urobilinogen Normal (Normal)
[2024-04-27 14:29] LABS: Squamous Epithelial Cells - UA 0-5 SEEN /hpf (0-5)
--- NOTE | 2024-04-27 16:01 | PCM.HP.STD ---
HPI - General General Date of Admission: 04/27/24 Date of Service: 04/27/24 Chief Complaint: Left-sided facial numbness and confusion HPI Narrative NOY JIANG, 54 y/o male hx of recent acute R MCA stroke 2/2 embolism 12/31/23 (w/o TNK) ultimately transferred to [facility] with residual left arm weakness and paresthesias presented to [facility] ED 04/27/2024 because 30 minutes prior to arrival he started to feel numb on the left side of his face and when he went to the bathroom he felt very disoriented. Patient presented to the ED 04/27/2024 as a stroke alert for the symptoms. Patient on aspirin and statin at home. CT with no acute stroke, CTA obtained with no large vessel occlusion so hospitalist contacted for admission. Patient evaluated in ED at bedside and he reports history as above, the facial numbness and confusion have since resolved. Reports he also felt like he was foggy and underwater became very anxious which made him feel lightheaded and short of breath, has not eaten well today but denied any other acute complaints. Patient denies any alcohol use [facility] Medical History (Updated 04/27/24 @ 16:[address] Temi Deng MD) AA (alcohol abuse) Anxiety HTN (hypertension) Home Medications ?Medication ?Instructions ?Recorded ?Last Taken ?Type alprazolam 0.5 mg tablet 0.5 mg PO BID ANXIETY 12/31/23 Unknown History atorvastatin 80 mg tablet 80 mg PO DAILY CHOLESTEROL 04/27/24 Unknown History baclofen 10 mg tablet 15 mg PO TID MUSCLE SPASMS 04/27/24 Unknown History losartan 25 mg tablet 25 mg PO DAILY BLOOD PRESSURE 04/27/24 Unknown History melatonin 3 mg tablet 3 mg PO 1900 SLEEP 04/27/24 Unknown History naltrexone 50 mg tablet 50 mg PO DAILY ADDICTION PREVENTION 04/27/24 Unknown History pregabalin 50 mg capsule 50 mg PO BID PAIN 04/27/24 Unknown History Allergy/AdvReac Type Severity Reaction Status Date / Time No Known Allergies Allergy Verified 04/27/24 14:17 Social History Smoking Status: Current every day smoker tobacco type: cigarettes ROS ROS Narrative General: Denies fever/chills HENT: Denies headache, denies stuffy nose, denies sore throat EYES: Denies changes in vision Resp: Denies cough, denies shortness of breath Cardiac: Denies chest pain GI: Denies abdominal pain, denies changes in bowel, denies nausea/vomiting : Denies changes in urination Extremity: Denies swelling MSK: Chronic left upper extremity weakness Neuro: Had confusion and left facial paresthesia Heme: Denies any bleeding or bruising Skin: Has some very scaling on left hip Psychiatric: No complaints voiced Vital Signs Vital Signs Vital Signs: 04/27/24 12:02 04/27/24 12:05 04/27/24 12:11 Temperature 97.6 F L Temperature Source Oral Pulse Rate 72 Respiratory Rate 18 Blood Pressure 161/101 H Blood Pressure Mean 121 Pulse Ox 98 98 Oxygen Delivery Method Room Air 04/27/24 12:29 04/27/24 12:55 04/27/24 13:00 Temperature Temperature Source Pulse Rate 69 66 66 Respiratory Rate 18 12 13 Blood Pressure 159/86 H 145/76 H Blood Pressure Mean 110 96 Pulse Ox 96 Oxygen Delivery Method Room Air 04/27/24 13:15 04/27/24 13:17 04/27/24 13:30 Temperature Temperature Source Pulse Rate 77 71 67 Respiratory Rate 10 L 19 H 14 Blood Pressure 155/83 H 147/83 H Blood Pressure Mean 104 103 Pulse Ox 99 96 Oxygen Delivery Method Room Air 04/27/24 13:45 04/27/24 14:00 04/27/24 14:00 Temperature Temperature Source Pulse Rate 66 71 68 Respiratory Rate 15 12 16 Blood Pressure 151/81 H 164/89 H 151/85 H Blood Pressure Mean 102 114 101 Pulse Ox 96 100 100 Oxygen Delivery Method Room Air 04/27/24 14:15 04/27/24 14:30 04/27/24 14:45 Temperature Temperature Source Pulse Rate 79 Respiratory Rate 16 Blood Pressure 164/89 H 153/80 H 160/86 H Blood Pressure Mean 113 100 108 Pulse Ox 100 Oxygen Delivery Method 04/27/24 15:00 04/27/24 15:25 Temperature 97.8 F Temperature Source Pulse Rate 77 81 Respiratory Rate 18 18 Blood Pressure 176/87 H 176/87 H Blood Pressure Mean 112 116 Pulse Ox 100 98 Oxygen Delivery Method Room Air Weight Weight: 79.5 kg Body Mass Index (BMI) 25.9 Physical Exam Narrative General: Alert, oriented, no apparent distress HEENT: Atraumatic, normocephalic Eyes: Anicteric, normal conjunctiva, extraocular movements intact, pupils equal Neck: Supple Respiratory: Clear to auscultation bilaterally, normal respiratory effort Cardiovascular: Regular rate and rhythm GI: Soft, nontender, nondistended Extremities: No edema Musculoskeletal: Strength 5 out of 5 in right upper extremity, 0 out of 5 left upper extremity, 5 out of 5 right lower extremity, 5 out of 5 left lower extremity Neuro: No overt focal neurological deficits, cranial nerves II through XII intact, [id number] with right hand, left limited by inability to move left upper arm Skin: No rashes appreciated Psych: Cooperative Results Lab / Micro Data 04/27/24 12:05 04/27/24 12:05 Labs: Laboratory Results - last 24 hr 04/27/24 12:02: POC Glucose 73 L 04/27/24 12:05: WBC 7.7, RBC 4.86, Hgb 15.7, Hct 47.1, MCV 96.9 H, MCH 32.3 H, MCHC 33.3, RDW Std Deviation 43.9, RDW Coeff of Cuate 12.3, Plt Count 228, MPV 10.5, Immature Gran % (Auto) 0.100, Neut % (Auto) 46.9 L, Lymph % (Auto) 40.2, [place] % (Auto) 9.7, Eos % (Auto) 2.3, Baso % (Auto) 0.8, Absolute Neuts (auto) 3.6, Absolute Lymphs (auto) 3.11, Nucleated RBC % 0, PT 12.3, INR 0.9, APTT 31.4, Sodium 143, Potassium 3.5, Chloride 108 H, Carbon Dioxide 28.0, Anion Gap 7, BUN 13, Creatinine 0.95, Estim Creat Clear Calc 86.82, Est GFR (MDRD) Af Amer 105, Est GFR (MDRD) Non-Af 87, BUN/Creatinine Ratio 13.7, Glucose 91, Calcium 9.4, Troponin I High Sens 4 04/27/24 13:08: Ethyl Alcohol < 3.0 04/27/24 13:18: Urine Color Straw, Urine Clarity Clear, Urine pH 7.0, Ur Specific [place] 1.005, Urine Protein Negative, Urine Glucose (UA) Normal, Urine Ketones Negative, Urine Occult Blood Negative, Urine Nitrite Negative, Urine Bilirubin Negative, Urine Urobilinogen Normal, Ur Leukocyte Esterase Negative, Urine RBC 0 SEEN, Urine WBC 0 SEEN, Ur Squamous Epith Cells 0-5 SEEN, Urine Bacteria 0 SEEN, Urine Mucus 0 SEEN, Urine Opiates Screen NEGATIVE, Urine Methadone Screen NEGATIVE, Ur Barbiturates Screen NEGATIVE, Ur Phencyclidine Scrn NEGATIVE, Ur Amphetamines Screen NEGATIVE, MDMA (Ecstasy) Screen NEGATIVE, U Benzodiazepines Scrn POSITIVE H, Urine Cocaine Screen NEGATIVE, U Cannabinoids Screen NEGATIVE, Ur Drug Screen Comment Imaging Radiology Impression Brain CT 04/27/24 12:09 IMPRESSION: No acute hemorrhage midline shift or suspicious mass effect. Remote right basal ganglia infarct with encephalomalacia N.B. : The above Results were Read Back by Ike Sands MD to Dr. Neftaly MD, and understanding confirmed on 04/27/2024 12:24:18 (ET). Electronically Signed: Ike Sands MD at 12:27 EDT , ADDENDUM: 04/27/24 1234 IMPRESSION: No acute hemorrhage midline shift or suspicious mass effect. Remote right basal ganglia infarct with encephalomalacia N.B. : The above Results were Read Back by Ike Sands MD to Dr. Neftaly MD, and understanding confirmed on 04/27/2024 12:24:18 (ET). Electronically Signed: Ike Sands MD at 12:27 EDT , Head/Neck CTA 04/27/24 12:11 IMPRESSION: Right ICA is occluded at its origin, unchanged from the previous study. There is no reconstitution. The caliber of the right M1 and its branches is diminished compared to the left side. There is no evidence of acute occlusive disease. Caliber differences likely due to the occluded right ICA and the right MCA being filled from the left side. No CTA evidence of aneurysm or vascular malformation Normal vertebral arteries N.B. : The above Results were Read Back by Ike Sands MD to Dr. Neftaly MD, and understanding confirmed on 04/27/2024 12:37:56 (ET). Electronically Signed: Ike Sands MD at 12:39 EDT , Chest X-Ray 04/27/24 12:48 IMPRESSION: No interval change. No active or acute cardiopulmonary disease. Electronically Signed: Alexx Sarkar MD at 13:02 EDT , Assessment & Plan Assessment/Plan (1) CVA (cerebral vascular accident): PLAN: Plan # Left facial numbness and confusion on top of residual left upper extremity weakness secondary to acute right MCA embolism 01/10/2024 -Admit to tele -CT head w/ no acute changes in ED -CTA head and neck with no large vessel occlusion -MRI ordered -NIH q4hr -asa, statin -Echo w/ bubble study -PT/OT/Speech eval -Hold BP medications to allow for permissive hypertension for 24 hours unless SBP greater than 220 or DBP greater than 120 or until stroke is ruled out #Left hip scaling -Suspicious for fungal infection -Will order topical #Anxiety -supportive care #DVT ppx: Lovenox subcu Temi Deng MD Time spent in the patient's overall evaluation,decision-making process, review of diagnostic data, adjustment of management, discussion with other providers, nursing nursing and ancillary staff involved in patient's care documentation, 42 minutes Charges/Coding Visit Charges Inpatient E&M: 78542 Init Hosp L1
--- NOTE | 2024-04-27 16:09 | ECHOCS_ITS ---
Reason For Study: TIA/CVA Procedure This was a 2D Doppler, Color Flow transthoracic echocardiogram. The study was technically difficult. Contrast injection was performed. Patient scanned supine due to patient condition. Exam performed portable in patient room. Left Ventricle Normal LV size. Left ventricular systolic function is normal. The left ventricular ejection fraction is 65 %. No regional wall motion abnormalities noted. Right Ventricle Normal right ventricle. Normal systolic function. Atria Normal left atrium. Normal right atrium. Mitral Valve Normal mitral valve. Tricuspid Valve Normal tricuspid valve. Aortic Valve Trisinus/trileaflet aortic valve. Pulmonic Valve Normal pulmonic valve. Great Vessels Normal aortic root. The pulmonary artery is normal size. Normal inferior vena cava. Pericardium/Pleural No pericardial effusion. Medication Diluted definity 3.5ml given slow IV push to enhance endocardial definition. Performed a rapid injection of agitated mix of 9 cc saline and 1cc air to assess for atrial septal defect. MMode/2D Measurements & Calculations LVIDd: 3.6 cm IVSd: 0.89 cm LVOT diam: 2.0 cm LVIDs: 2.5 cm LVPWd: 0.76 cm RVDd: 3.2 cm FS: 31.7 % LVOT area: 3.2 cm2 Ao root diam: 3.3 cm LAV(MOD-bp): 28.6 ml LVAd ap4: 29.6 cm2 LA dimension: 3.4 cm LAV(MOD-bp) Indexed: 14.6 ml/m2 LVLd ap4: 8.7 cm LAV(MOD-sp2): 27.0 ml EDV(MOD-sp4): 82.0 ml LAV(MOD-sp4): 29.2 ml EDV(sp4-el): 85.3 ml LVAs ap4: 12.1 cm2 LVLs ap4: 6.9 cm ESV(MOD-sp4): 17.7 ml ESV(sp4-el): 18.1 ml EF(MOD-sp4): 78.4 % EF(sp4-el): 78.8 % SV(MOD-sp4): 64.3 ml SV(sp4-el): 67.2 ml LA A4 area: 13.6 cm2 TAPSE: 1.7 cm Time Measurements MV dec time: 0.19 sec Doppler Measurements & Calculations MV E max niranjan: 39.2 cm/sec Lat Peak E' Niranjan: 11.8 cm/sec Med Peak E' Niranjan: 7.0 cm/sec MV A max niranjan: 59.5 cm/sec E/E' lat: 3.3 E/E' med: 5.6 MV E/A: 0.66 MV V2 max: 73.6 cm/sec MV P1/2t max niranjan: 57.1 cm/sec Ao V2 max: 113.6 cm/sec MV max P.2 mmHg MV P1/2t: 90.8 msec Ao max P.2 mmHg MV V2 mean: 41.8 cm/sec Ao V2 mean: 72.3 cm/sec MV mean P.83 mmHg MV dec slope: 184.3 cm/sec2 Ao mean P.5 mmHg MV V2 VTI: 20.1 cm MVA(P1/2t): 2.4 cm2 Ao V2 VTI: 20.5 cm AV (velocity ratio): 0.85 MVA(VTI): 2.8 cm2 JEROD(I,D): 2.7 cm2 JEROD(V,D): 2.4 cm2 LV V1 max: 85.0 cm/sec SV(LVOT): 56.0 ml PA V2 max: 74.9 cm/sec LV V1 max P.9 mmHg PA max PG (full): 0.67 mmHg LV V1 mean P.7 mmHg LV V1 mean: 61.4 cm/sec LV V1 VTI: 17.3 cm ECHO/Echo Complete W/ Contrast Interpretation Summary Normal LV size. Left ventricular systolic function is normal. The left ventricular ejection fraction is 65 %. Structurally normal valves. Contrast injection was performed. Ordering Physician: Temi Deng Performed By: Cornelius Quintanilla and Student
--- NOTE | 2024-04-27 16:09 | MRI_ITS ---
STUDY: MRI BRAIN WITHOUT CONTRAST REASON FOR EXAM: Male, 54 years old. stroke r/o TECHNIQUE: Standardized multiplanar fat and water weighted pulse sequences were obtained. COMPARISON: CT of the brain April 27, 2024 FINDINGS: Normal size of the ventricles and extra-axial spaces for the patient''s age. Normal white matter tracts of the supratentorial brain. Old lacunar infarct in the right basal ganglia extending into the right medial temporal lobe and frontal parietal region.. Normal thalami. There is no extra-axial fluid accumulation. Normal flow voids within the major intracranial circulation suggesting patency by spin echo criteria. Normal sella turcica, pituitary gland, infundibular stalk, optic chiasm and hypothalamus. Normal tectal plate and pineal gland. Normal midbrain, kasey and medulla. Normal cerebellum. Normal basal cisterns. Normal bilateral temporal bones. Normal bilateral internal auditory canals. No demonstrated orbital abnormality, within the constraints of a routine brain study. Normal visualized paranasal sinuses. Normal calvarium and skull base. Normal visualized soft tissue structures. Normal visualized upper cervical spine. MRI/Brain without Contrast IMPRESSION: Old infarct in the right basal ganglia extending into the medial temporal lobe frontal and parietal lobes.. There is no evidence for acute infarct Electronically Signed: Albaro Melissa MD at 19:28 EDT ,
--- NOTE | 2024-04-27 16:12 | CHAPLAIN ---
Type of Pastoral Visit ___ Initial Visit ___ Follow-up Visit ___ On-call Visit ___ General Patient Visit ___ Spiritual Assessment ___ Family Conference ___ Bereavement _x__ Rapid Response ___ Code Blue ___ Other (describe below) Pastoral Care Referral From ___ Patient ___ Family ___ Nurse ___ Physician ___ Net Trainer ___ Health Social Work Professor _x__ Other (describe below) Sacrament/Intervention ___ Active listening ___ Anointing ___ Moravian ___ Bereavement ___ Communion ___ Claudia exploration ___ ___ Life review ___ Prayer ___ Reconciliation ___ Sacrament of Sick _x__ Supportive presence ___ Wedding ___ Other (describe below) Pastoral Comments responded to stroke alert in ED; found son of the patient in the room as pt was being taken to CT for a scan; offered support and asked for any needs of the son; son denies any needs or concerns and states that pt has had a previous stroke so know what this is like;
[2024-04-27] MEDS: Aspirin 325 MG Tablet PO (19:05)
[2024-04-27] MEDS: Atorvastatin Calcium 80 MG Tablet PO (22:56)
[2024-04-27] MEDS: Clotrimazole 1 APPLIC Tube TOPICAL (22:56)
[2024-04-27] MEDS: Pregabalin 50 MG Capsule PO (22:56)
[2024-04-28] MEDS: Temazepam 15 MG Capsule 30 MG PO (00:31)
[2024-04-28] MEDS: MELATONIN 3 MG TABLET 6 MG PO (00:32)
[2024-04-28 01:57] VITALS: BMI 27.3
[2024-04-28 03:30] VITALS: BP 107/62; PULSE 61; RESP 16; TEMP 36.6; O2SAT 97
[2024-04-28 06:45] LABS: Absolute Lymphocyte Count 2.43 X10^3/uL (0.83-4.51); Absolute Neutrophil Count 3.1 X10^3/uL (2.0-7.7); Basophil# 0.07 X10^3/uL; Basophil% 1.1 % (0-1); Eosinophil# 0.22 X10^3/uL; Eosinophils% 3.4 % (0-5); Hematocrit 41.5 % (40-54); Hemoglobin 13.8 g/dL (13.0-16.5); Lymphocyte # 2.43 X10^3/ul (0.83-4.51); Lymphocyte % 37.6 % (19-41); Mean Corp Hgb Conc 33.3 g/dL (32-36); Mean Corpuscular Volume 96.3 fL (80-94); Mean Platelet Vol. 10.4 fl (6.2-12.0); Monocyte% 9.3 % (0-10); NRBC Flagged by Analyzer 0 % (0-5); Neutrophil # 3.14 X10^3/uL (2.7-7.7); Neutrophil % 48.4 % (47-70); Platelet Count 220 K/mm3 (150-450); RBC Distribution Width CV 12.3 % (11.6-14.6); RBC Distribution Width SD 43.8 fl (35.1-43.9); Red Blood Count 4.31 M/mm3 (4.6-6.2); White Blood Count 6.5 K/mm3 (4.4-11.0)
[2024-04-28 07:25] VITALS: O2SAT 98
[2024-04-28 07:30] VITALS: BP 124/80; PULSE 64; RESP 18; TEMP 36.4; O2SAT 98
[2024-04-28 07:48] LABS: AST(SGOT) 22 U/L (15-37); Alanine Aminotransfer ALT/SGPT 44 U/L (16-61); Alkaline Phosphatase 104 U/L (45-117); Anion Gap 6 (5-15); BUN 12 mg/dL (7-18); BUN/Creat Ratio 14.4 RATIO (10-20); Calcium,Total 8.5 mg/dL (8.5-10.1); Chloride 110 mmol/L (98-107); Cholesterol 114 mg/dL (200); Creatinine, Serum 0.83 mg/dL (0.70-1.30); EST Glomerular Filtration Rate 101 mL/min (>60); Est Glom Filt Rate - Afr Amer 123 mL/min (>60); Estimated Creatinine Clearance 96.14 ml/min; Glucose 93 mg/dL (74-106); High Density Lipoprotein 51 mg/dL; Potassium 3.5 mmol/L (3.5-5.1); Sodium Level 141 mmol/L (136-145); Triglycerides 93 mg/dL; Very Low Density Lipoprotein 19 mg/dL (5-40)
--- NOTE | 2024-04-28 08:56 | CASEMGMT ---
Social Work- PHQ9 not completed d/t physician reporting no stroke/TIA confirmed. ALICE Avilez
[2024-04-28 12:11] VITALS: BMI 27.3
[2024-04-28] MEDS: Pregabalin 50 MG Capsule PO (13:22)
[2024-04-28] MEDS: Enoxaparin 40 MG/0.4 ML Syringe SC (13:22)
[2024-04-28] MEDS: Aspirin 81 MG TAB.CHEW PO (13:22)
[2024-04-28] MEDS: 0.9% Saline Lock 10 ML Syringe IV (13:22)
[2024-04-28] MEDS: Clotrimazole 1 APPLIC Tube TOPICAL (13:22)
[2024-04-28] MEDS: oxyCODONE 5 MG Tablet PO (13:23)
[2024-04-28] MEDS: Acetaminophen 325 MG Tablet 650 MG PO (13:23)
[2024-04-28 13:30] VITALS: BP 130/76; PULSE 62; RESP 16; TEMP 36.6; O2SAT 96
--- NOTE | 2024-04-28 15:47 | STROKE.CONS ---
Assessment and Plan: Stroke Assessment/Plan NOY JIANG, is a 54 year old male with history of prior right MCA ischemic stroke 12/31/2023 with residual left arm weakness/numbness (ambulates with quad cane), HTN, anxiety, Smoker/EtOH use who presents with left face numbness, SOB, and confusion. Episode lasted 30 minutes then resolved. He presented to [place] [facility]. Initial NIHSS in ER was 5. he was admitted. MRI brain DWI was negative for acute infarct, shows old infarct. He is on Asa, lipitor 80, and lovenox. Patient currently feels back to baseline- his left sided weakness is chronic. Neurological examination shows left arm weakness/numbness, NIHSS 5. ASSESSMENT/PLAN: Unmasking No further stroke work-up recommended. Can DC home on his stroke prevention medications with outpatient follow-up in stroke clinic. Please yennifer us with further stroke related questions. Primary team messaged on backline. HPI Consult Data Date of Consult: 04/28/24 HPI Narrative HPI Narrative: NOY JIANG, is a 54 year old male with history of prior right MCA ischemic stroke 12/31/2023 with residual left arm weakness/numbness (ambulates with quad cane), HTN, anxiety, Smoker/EtOH use who presents with left face numbness, SOB, and confusion. Episode lasted 30 minutes then resolved. He presented to [place] [facility]. Initial NIHSS in ER was 5. he was admitted. MRI brain DWI was negative for acute infarct, shows old infarct. He is on Asa, lipitor 80, and lovenox. Patient currently feels back to baseline- his left sided weakness is chronic. [facility] Medical History AA (alcohol abuse) Anxiety HTN (hypertension) Home Medications ?Medication ?Instructions ?Recorded ?Last Taken ?Type alprazolam 0.5 mg tablet 0.5 mg PO BID ANXIETY 12/31/23 04/27/24 History acetaminophen 325 mg capsule 650 mg PO Q4H PRN pain shoulder 04/27/24 04/27/24 History aspirin 81 mg capsule 81 mg PO DAILY 04/27/24 04/27/24 History atorvastatin 80 mg tablet 80 mg PO DAILY CHOLESTEROL 04/27/24 04/26/24 History baclofen 10 mg tablet 15 mg PO TID MUSCLE SPASMS 04/27/24 04/27/24 History losartan 25 mg tablet 25 mg PO DAILY BLOOD PRESSURE 04/27/24 04/27/24 History melatonin 3 mg tablet 3 mg PO 1900 SLEEP 04/27/24 04/27/24 History naltrexone 50 mg tablet 50 mg PO DAILY ADDICTION PREVENTION 04/27/24 04/27/24 History pregabalin 50 mg capsule 50 mg PO BID PAIN 04/27/24 04/27/24 History Allergy/AdvReac Type Severity Reaction Status Date / Time No Known Allergies Allergy Verified 04/27/24 14:17 Social History Smoking Status: Current every day smoker tobacco type: cigarettes Vital Signs Vital Signs Vital Signs: 04/27/24 16:45 04/27/24 16:45 04/27/24 16:56 Temperature 97.1 F L Temperature Source Temporal Pulse Rate 65 Respiratory Rate 16 Respiratory Effort Normal Non-Labored Respiratory Depth Normal Respiratory Pattern Normal Blood Pressure 167/87 H Blood Pressure Mean 113 Blood Pressure Source Monitor Blood Pressure Position Semi-Fowlers Blood Pressure Location Right Forearm Pulse Ox 100 99 Oxygen Delivery Method Room Air Room Air Room Air 04/27/24 19:30 04/27/24 20:31 04/27/24 23:30 Temperature 98.4 F 97.8 F Temperature Source Oral Oral Pulse Rate 68 62 Respiratory Rate 18 18 Respiratory Effort Respiratory Depth Respiratory Pattern Blood Pressure 133/78 H 146/82 H Blood Pressure Mean 96 103 Blood Pressure Source Blood Pressure Position Blood Pressure Location Pulse Ox 100 99 97 Oxygen Delivery Method Room Air Room Air Room Air 04/28/24 03:30 04/28/24 07:25 Temperature 97.8 F Temperature Source Temporal Pulse Rate 61 Respiratory Rate 16 Respiratory Effort Respiratory Depth Respiratory Pattern Blood Pressure 107/62 Blood Pressure Mean 77 Blood Pressure Source Blood Pressure Position Blood Pressure Location Pulse Ox 97 98 Oxygen Delivery Method Room Air Room Air Weight Weight: 81.7 kg Body Mass Index (BMI) 27.3 NIHSS NIHSS Nursing Documentation NIHSS Nursing Documentation: NIHSS: Ischemic Stroke/TIA Start: 04/27/24 17:02 Text: For PCU Patients: NIH and Neuro Check every 4 Status: Active hours, PRN and with change in RN caregiver. Freq: [id number] Protocol: Activity Type Activity Date Activity User E-sign Co-sign Detail Recorded Client Recorded Date Recorded By Document 04/28/24 03:30 [facility] [id number] 04/28/24 05:08 [facility] 04/28/24 03:30 NIH Stroke Scale [NIHSS] A score of 0 is normal or asymptomatic . Total possible score is 42. Inpatient: RN or Physician to activate a stroke alert for onset of new stroke symptoms or with NIHSS increase >/= 3 points. Following change in neurological status, NIHSS will be performed per physician order or more frequently PRN. -1a. Level of Consciousness Alert; keenly responsive -1b. LOC Questions Answers BOTH questions correctly. -1c. LOC Commands Performs both tasks correctly . -2. Best Gaze Normal -3. Visual No visual loss -4. Facial Palsy Minor paralysis (flattened nasolabial fold , asymmetry on smiling) -5a. Left Arm No effort against gravity ; arm falls -5b. Right Arm No drift; arm holds 90 (or 45 ) degrees for full 10 seconds -6a. Left Leg No drift; leg holds 30-degree position for full 5 seconds -6b. Right Leg No drift; leg holds 30-degree position for full 5 seconds -7. Limb Ataxia Present in 1 limb -8. Sensory Normal; no sensory loss -9. Best Language No aphasia; normal -10. Dysarthria Normal -11. Extinction and Inattention No abnormality -Total 5 Query Text:A score of 0 is normal or asymptomatic. Total possible score is 42 . ED: Notify Physician for NIHSS increase by > / = 3 points. Inpatient: RN or Physician to activate a stroke alert for NIHSS increase of > / = 3 points. NIHSS 1a. Level of Consciousness: Alert; keenly responsive 1b. LOC Questions: Answers BOTH questions correctly. 1c. LOC Commands: Performs both tasks correctly. 2. Best Gaze: Normal 3. Visual: No visual loss 4. Facial Palsy: Normal symmetrical movements 5a. Left Arm: No movement 5b. Right Arm: No drift; arm holds 90 (or 45) degrees for full 10 seconds 6a. Left Leg: No drift; leg holds 30-degree position for full 5 seconds 6b. Right Leg: No drift; leg holds 30-degree position for full 5 seconds 7. Limb Ataxia: Absent 8. Sensory: [id number] sensory loss; 10. Dysarthria: Normal 11. Extinction and Inattention: No abnormality Total: 5 Physical Exam Neuro Neuro Narrative: Neurological examination: General: The patient appears nutritionally appropriate, well-groomed, and appears comfortable in no acute distress. Mental Status: The patient?s mental status was normal including orientation. Language was intact. Cranial nerves: Visual pierre full, and extra-ocular motion was intact. Face motion symmetric. Tongue was midline with normal movement. There was no dysarthria. Motor: Normal strength in right arm and bilateral legs. left arm has no movement. Sensation: Decreased light touch in left, no extinction. Coordination: Right finger to nose was normal. There was no dysmetria. Gait: deferred Lab / Micro Data 04/28/24 06:16 04/28/24 06:16 Labs: Laboratory Results - last 24 hr 04/28/24 06:16: WBC 6.5, RBC 4.31 L, Hgb 13.8, Hct 41.5, MCV 96.3 H, MCH 32.0, MCHC 33.3, RDW Std Deviation 43.8, RDW Coeff of Cuate 12.3, Plt Count 220, MPV 10.4, Immature Gran % (Auto) 0.200, Neut % (Auto) 48.4, Lymph % (Auto) 37.6, [place] % (Auto) 9.3, Eos % (Auto) 3.4, Baso % (Auto) 1.1 H, Absolute Neuts (auto) 3.1, Absolute Lymphs (auto) 2.43, Nucleated RBC % 0, PT 13.0, INR 1.0, Sodium 141, Potassium 3.5, Chloride 110 H, Carbon Dioxide 25.0, Anion Gap 6, BUN 12, Creatinine 0.83, Estim Creat Clear Calc 96.14, Est GFR (MDRD) Af Amer 123, Est GFR (MDRD) Non-Af 101, BUN/Creatinine Ratio 14.4, Glucose 93, Hemoglobin A1c 5.0, Calcium 8.5, Magnesium 2.0, Total Bilirubin 0.70, AST 22, ALT 44, Alkaline Phosphatase 104, Total Protein 6.0 L, Albumin 3.0 L, Globulin 3.0, Albumin/Globulin Ratio 1.0, Triglycerides 93, Cholesterol 114, LDL Cholesterol 44, VLDL Cholesterol 19, HDL Cholesterol 51, TSH 1.80 Imaging Radiology Impression Brain MRI 07/01/24 16:09 IMPRESSION: Old infarct in the right basal ganglia extending into the medial temporal lobe frontal and parietal lobes.. There is no evidence for acute infarct Electronically Signed: Albaro Melissa MD at 19:28 EDT Reading Location ID and State: [facility] / [place] Tel , Service support , Active Medications Active Medications Active Medications: Current Medications Generic Name Dose Route Start Last Admin Trade Name Freq PRN Reason Stop Dose Admin Acetaminophen 650 mg 04/27/24 17:02 04/28/24 13:23 Acetaminophen 325 Mg Tablet PO 650 mg Q6H PRN PRN Administration Pain 1-10 Or Fever >100.7 Albuterol Sulfate 2.5 mg 04/27/24 17:02 Albuterol 2.5 Mg/3 Ml Vial.Neb. INHALATION Q2H PRN PRN SOB &/OR WHEEZING Alprazolam 0.5 mg 04/28/24 22:00 Alprazolam 0.5 Mg Tablet PO BID DYAN Aspirin 81 mg 04/28/24 08:00 04/28/24 13:22 Aspirin 81 Mg Tab.Chew PO 81 mg BREAKFAST DYAN Administration Atorvastatin Calcium 80 mg 04/27/24 22:00 04/27/24 22:56 Atorvastatin Calcium 80 Mg Tablet PO 80 mg QHS DYAN Administration Baclofen 15 mg 04/28/24 14:00 Baclofen 10 Mg Tablet PO TID DYAN Clotrimazole 1 applic 04/27/24 22:00 04/28/24 13:22 Clotrimazole 1 Applic Tube TOPICAL 1 applic BID DYAN Administration Protocol Enoxaparin Sodium 40 mg 04/28/24 10:00 04/28/24 13:22 Enoxaparin 40 Mg/0.4 Ml Syringe SC 40 mg DAILY DYAN Administration Hydralazine HCl 5 mg 04/27/24 17:02 Hydralazine 20 Mg/Ml Vial IV 04/28/24 17:02 Q30M PRN maintain BP parameters with HR <60 Sodium Chloride 250 mls @ 15 mls/hr 04/28/24 10:00 IV .[id number] PRN Additional IVPB Infusion Sodium Chloride 250 mls @ 15 mls/hr 04/28/24 10:00 IV .[id number] PRN Saline Flush Iopamidol 0 ml 04/27/24 12:15 04/27/24 18:37 Contrast Allergy Safety Check IV Not Given X1 DYAN Melatonin 3 mg 04/27/24 17:02 Melatonin 3 Mg Tablet PO QHS PRN PRN INSOMNIA Nicotine 21 mg 04/28/24 10:00 04/28/24 13:46 Nicotine 21 Mg Patch TD 21 mg DAILY DYAN Administration Ondansetron HCl 4 mg 04/27/24 17:02 Ondansetron 4 Mg/2 Ml Vial IV Q8H PRN PRN NAUSEA/VOMITING Oxycodone HCl 5 mg 04/27/24 17:02 04/28/24 13:23 Oxycodone 5 Mg Tablet PO 5 mg Q4H PRN PRN Administration Pain Score 4-10 Pregabalin 50 mg 04/27/24 22:00 04/28/24 13:22 Pregabalin 50 Mg Capsule PO 50 mg BID DYAN Administration Senna/Docusate Sodium 2 tablet 04/27/24 17:02 Senna/Docusate Sodium 1 Tablet PO BID PRN PRN Constipation Sodium Chloride 10 - 40 ml 04/28/24 10:00 0.9% Saline Lock 10 Ml Syringe IV UD PRN SALINE FLUSH
[2024-04-28] MEDS: Baclofen 10 MG Tablet 15 MG PO (15:54)
--- NOTE | 2024-04-28 15:55 | CHAPLAIN ---
Type of Pastoral Visit _x__ Initial Visit ___ Follow-up Visit ___ On-call Visit ___ General Patient Visit ___ Spiritual Assessment ___ Family Conference ___ Bereavement ___ Rapid Response ___ Code Blue ___ Other (describe below) Pastoral Care Referral From _x__ Patient ___ Family ___ Nurse ___ Physician ___ Java Web Engineer ___ Poultry Eviscerator ___ Other (describe below) Sacrament/Intervention _x__ Active listening ___ Anointing ___ Baptist ___ Bereavement ___ Communion _x__ Claudia exploration ___ _x__ Life review _x__ Prayer ___ Reconciliation ___ Sacrament of Sick _x__ Supportive presence ___ Wedding ___ Other (describe below) Pastoral Comments patient was evaluated for a stroke yesterday and believes he is just having symptoms from a previous stroke in December; pt tells of the life changes he has been making since December which include stopping to drink and smoke; pt has also been going to [employer] with a friend and has found it very helpful to his life and perspective on change; pt speaks of his who is very supportive for him too; pt admits that he has anxiety and pain which is not being addressed by the hospital today; pt is open to prayer and conversation for support today
--- NOTE | 2024-04-28 15:57 | CASEMGMT ---
Patient to discharge today. RN CM in to discuss needs at discharge. Patient is already participating in outpatient therapy. Patient denies needs or help at discharge. Patient had no further questions or concerns.
--- NOTE | 2024-04-28 16:04 | DCINST_ITS ---
Discharge Instructions Diet Discharge Diet: Low fat / Low cholesterol Activity Discharge Activity: Return to Normal Activity Dressing / Incision Call your doctor if you observe: Fever of 101 or Higher, Shortness of breath, Dizziness, Fainting spells, Swelling in the ankles, Chest pain and Increased palpitations (irregular heartbeat) Follow Up Care Test Results: Test results from this visit will be discussed in further detail at your follow- up appointment, if applicable. Discharge Plan Admission Admit Date/Time: 04/27/24 16:01 Attending Provider: Dandre Larsen Primary Care Provider: Yfn Goodrich Consulting Providers: Vikram Jiménez; Dee Hyde; Zaira Duran; Nohelia Phipps; Tari Pham; Pablo Calderon; Soledad Santos; Ananda Michelle; Lorne Linda; En Cortez; Lissett Britton; Mark Landry; Alessandra Hyde; Maria A Beltrán; Kelvin Barr; Gray Ardon; Rocio Arthur; Flavio Gunter; Noemi Allen; Carine Galvez; Temi Deng Discharge Orders/Prescriptions Prescriptions: Continued atorvastatin 80 mg tablet 80 mg PO DAILY naltrexone 50 mg tablet 50 mg PO DAILY melatonin 3 mg tablet 3 mg PO 1900 baclofen 10 mg tablet 15 mg PO TID losartan 25 mg tablet 25 mg PO DAILY pregabalin 50 mg capsule 50 mg PO BID aspirin 81 mg capsule 81 mg PO DAILY acetaminophen 325 mg capsule 650 mg PO Q4H PRN (Reason: pain shoulder) alprazolam 0.5 mg tablet 0.5 mg PO BID Referrals / Follow Up: Yfn Goodrich DO [Primary Care Provider] - Within 1 Week Disposition Disposition (needs filled in before D/C Order can be placed): Home, Self Care
[2024-04-28 18:00] VITALS: BP 129/86; PULSE 76; RESP 16; TEMP 36.7; O2SAT 98
--- NOTE | 2024-04-29 15:58 | PCM.DC.SUM ---
Providers Date of Admission: 04/27/24 Date of Discharge: 04/28/24 Primary Care Physician: Dr. Yfn Goodrich, Consultations 04/27/24 17:02 Consult: Tele-Neurology Routine Consulting Provider: [facility] Reason for Consult: Acute Ischemic Stroke/TIA EMERGENT Consult: No MD Notified: Yes Date Notified: 04/27/24 Time Notified: 17:40 Method of Notification: Answering Service Comments:: Pt seen as stroke call in ED Nursing Unit Staff Notify [facility] of Tele-Neurology Consult: Yes Reason For Visit: STROKE R/O Diagnosis Discharge Diagnosis (1) CVA (cerebral vascular accident): Status: Acute Code(s): I63.9 - Cerebral infarction, unspecified Medications at Discharge Home Medications alprazolam 0.5 mg tablet 0.5 mg PO BID ANXIETY 12/31/23 acetaminophen 325 mg capsule 650 mg PO Q4H PRN pain shoulder 04/27/24 aspirin 81 mg capsule 81 mg PO DAILY 04/27/24 atorvastatin 80 mg tablet 80 mg PO DAILY CHOLESTEROL 04/27/24 baclofen 10 mg tablet 15 mg PO TID MUSCLE SPASMS 04/27/24 losartan 25 mg tablet 25 mg PO DAILY BLOOD PRESSURE 04/27/24 melatonin 3 mg tablet 3 mg PO 1900 SLEEP 04/27/24 naltrexone 50 mg tablet 50 mg PO DAILY ADDICTION PREVENTION 04/27/24 pregabalin 50 mg capsule 50 mg PO BID PAIN 04/27/24 Hospital Course Operations None Procedures 2-D Echocardiogram Summary of Care Provided Minutes Spent on Discharge: 35 Hospital Course: Per HPI: NOY DEIDRE, 54 y/o male hx of recent acute R MCA stroke 2/2 embolism 12/31/23 (w/o TNK) ultimately transferred to [facility] with residual left arm weakness and paresthesias presented to [facility] ED 04/27/2024 because 30 minutes prior to arrival he started to feel numb on the left side of his face and when he went to the bathroom he felt very disoriented. Patient presented to the ED 04/27/2024 as a stroke alert for the symptoms. Patient on aspirin and statin at home. CT with no acute stroke, CTA obtained with no large vessel occlusion so hospitalist contacted for admission. Patient evaluated in ED at bedside and he reports history as above, the facial numbness and confusion have since resolved. Reports he also felt like he was foggy and underwater became very anxious which made him feel lightheaded and short of breath, has not eaten well today but denied any other acute complaints. Patient denies any alcohol use Hospital Course: 1. Left facial numbness and confusion on top of residual left upper extremity weakness?54-year-old male presented to the hospital with recurrent signs and symptoms of his previous right MCA stroke. At that time he was transferred to [facility] in December during his last stroke so we do not have any of the workup that was done down there. Repeat echo was unremarkable with no shunt. Will resume all of his home medications for his previous stroke and he was evaluated by [facility] neurology who felt that there is no further workup or medication changes that were necessary on discharge at this time. I discussed with him the plan for discharge and he expressed understanding of the risk benefits of going home and he would like to go home today. Neurology felt that this was unmasking as his had a recent respiratory illness which could contributed to the reemergence of his previous stroke syndrome. Physical Exam Narrative General: Alert, Oriented x3, Cooperative, No apparent distress HEENT: Atraumatic, PERRLA, EOMI, Normocephalic Oral: Moist Mucosa Neck: Supple, No JVD Lungs: Diminished, Normal air movement, No rhonchi, No wheeze, No rales Cardiovascular: Regular rate, Regular Rhythm, Normal S1, Normal S2, No murmurs Abdomen: Soft, Non Tender, Non-Distended, No Hepato-splenomegaly Extremities: No edema, Capillary Refill Less than 3 Seconds Skin: No rashes, No breakdown Musculoskeletal: No Tenderness to Palpation of Joints or Extremities Neurological: Residual chronic left-sided deficits, sensations intact. Cannot move left arm Psych/Mental Status: Flat Weight / BMI Weight Weight: 180 lb 1.883 oz Body Mass Index (BMI) 27.3 ABG / Lab / Microbiology Data 04/28/24 06:16 04/28/24 06:16 D/C Instructions Discharge Diet: Low fat / Low cholesterol Call your doctor if you observe: Fever of 101 or Higher, Shortness of breath, Dizziness, Fainting spells, Swelling in the ankles, Chest pain and Increased palpitations (irregular heartbeat) Meaningful Use Info Meaningful Use Meaningful Use Diagnoses (Choose all that apply): None applicable Ischemic Stroke Statin Dosing Therapy Reference: STATIN DOSE THERAPY REFERENCE: * Patients > 75 years receive moderate or high dose statin therapy. * Patients 75 years or YOUNGER should receive HIGH intensity statin dose unless contraindicated. You will be required to document reason for non-treatment if statin daily dose does not meet guidelines. HIGH DOSE STATIN THERAPY DAILY Atorvastatin > than or = to 40 mg Rosuvastatin > than or = to 20 mg Amlodipine + Atorvastatin > than or = to 2.5/40 mg Ezetimibe + Simvastatin 10/80 mg Simvastatin 80mg Discharge Plan Admission Admit Date/Time: 04/27/24 16:01 Attending Provider: Dandre Larsen Primary Care Provider: Yfn Goodrich Consulting Providers: Vikram Jiménez; Dee Hyde; Zaira Duran; Nohelia Phipps; Tari Pham; Pablo Calderon; Soledad Santos; Ananda Michelle; Lorne Linda; En Cortez; Lissett Britton; Mark Landry; Alessandra Hyde; Maria A Beltrán; Kelvin Barr; Gray Ardon; Rocio Arthur; Flavio Gunter; Noemi Allen; Carine Galvez; Temi Deng Discharge Orders/Prescriptions Prescriptions: Continued atorvastatin 80 mg tablet 80 mg PO DAILY naltrexone 50 mg tablet 50 mg PO DAILY melatonin 3 mg tablet 3 mg PO 1900 baclofen 10 mg tablet 15 mg PO TID losartan 25 mg tablet 25 mg PO DAILY pregabalin 50 mg capsule 50 mg PO BID aspirin 81 mg capsule 81 mg PO DAILY acetaminophen 325 mg capsule 650 mg PO Q4H PRN (Reason: pain shoulder) alprazolam 0.5 mg tablet 0.5 mg PO BID Referrals / Follow Up: Yfn Goodrich DO [Primary Care Provider] - Within 1 Week Disposition Disposition (needs filled in before D/C Order can be placed): Home, Self Care Charges/Coding Visit Charges Inpatient E&M: 98982 Disch Hosp >30min
== END 2024-04-28 18:06 | disposition home or self-care (01) ==
LOC: ED 12:50 → PCU 16:16
PROVIDERS: Admitting Provider Internal Medicine; Emergency Provider Emergency Medicine; PCP Preventive Medicine Occupational Medicine; Visit Provider Family Medicine
DX: R41.0 Disorientation, unspecified (principal); I69.334 Monoplegia of upper limb following cerebral infarction affecting left non-dominant side; R29.705 NIHSS score 5; I10 Essential (primary) hypertension; F41.9 Anxiety disorder, unspecified; F17.210 Nicotine dependence, cigarettes, uncomplicated; Z79.82 Long term (current) use of aspirin; R20.0 Anesthesia of skin; R06.02 Shortness of breath; Z79.899 Other long term (current) drug therapy
CPT/HCPCS: 36415; 70450; 70496; 70498; 70551; 71045; 80048; 80053; 80061; 80307; 81001; 82077; 82962; 83036; 83735; 84443; 84484; 85025; 85610; 85730; 93005; 93306; 94762; 96360; 96372; 97162; 97166; 97802; 99221; 99285; 99406; J7040; Q9957; Q9967; A4216; C8929; G0378